=== PATIENT | male | born 1985 | race Caucasian/White ===

== ENCOUNTER 2021-06-29 03:14 | Emergency (ER) | payer SELFPAY ==
[~2021-06-29] VITALS: Ht 165.1 cm; Wt 62.0 kg
[2021-06-29 03:34] VITALS: BP 126/82
== END 2021-06-29 04:20 | disposition home or self-care (01) ==
LOC: ER 03:34
DX: R53.1 Weakness (principal); Z59.00 Homelessness unspecified; F17.290 Nicotine dependence, other tobacco product, uncomplicated
CPT/HCPCS: 99283